=== PATIENT | female | born 1965 | race Caucasian/White ===

== ENCOUNTER → 2019-03-12 | Outpatient (CLI) | payer OTHER ==
--- NOTE | 2019-03-13 11:17 | CT ---
EXAM DESCRIPTION: Abdomen/Pelvis w/Contrast CLINICAL HISTORY: 53 years Female, DIVERTICULITITS TECHNIQUE: This exam was performed according to our departmental dose-optimization program, which includes automated exposure control, adjustment of the mA and/or kV according to patient size and/or use of iterative reconstruction technique. COMPARISON: None at time of initial interpretation. FINDINGS: Visualized lung bases are grossly unremarkable. Cholecystectomy. The liver is unremarkable. No suspicious hepatic lesion. No biliary dilatation. The portal vein is patent. The spleen, pancreas and adrenal glands are unremarkable. Normal kidneys. No hydronephrosis. No urolithiasis. Unremarkable bladder. Acute sigmoid diverticulitis. There may be a small, nondrainable intramural abscess measuring 1.3 cm series 2 image 75. There is no free air. There is no pericolonic abscess identified. No evidence of bowel obstruction. No findings to suggest appendicitis. No adenopathy. No focal fluid collection. No free air. Normal caliber abdominal aorta. No acute or suspicious osseous abnormality. Scattered degenerative changes present. IMPRESSION: Acute sigmoid diverticulitis with a small intramural abscess measuring 1.3 cm. No drainable fluid collection or free air. Electronically signed by: Den Lucia MD 03/13/2019 11:15 AM CDT
== END ==
LOC: LAB.O 11:48
PROVIDERS: ATTEND Nurse Practitioner Family
DX: K57.20 Diverticulitis of large intestine with perforation and abscess without bleeding (principal)